=== PATIENT | male | born 1955 | race Caucasian/White ===

== ENCOUNTER → 2016-06-11 | Outpatient (CLI) | payer OTHER ==
[~2016-06-11] MED LIST: ASPI81TA28 PO; FLUT0.0529 NAE; LISI20TA3 PO; MULT-506 PO; OPTIRAY 320 IV PRN
--- NOTE | 2016-06-11 09:30 | DIAGNOSTIC IMAGING REPORT ---
CHEST CTA for AORTIC DISSECTION CT DOSE: 1883.15 mGy.cm HISTORY: Follow-up pulmonary nodules. Hypertension. Evaluate aortic dilatation. X TECHNIQUE: Multiaxial CT images of the chest were performed both before and after the intravenous administration of contrast to evaluate the aorta. Maximal intensity projection images were also obtained. COMPARISON STUDY: Chest CT 01/04/2016. FINDINGS: Mediastinal and bilateral hilar lymph nodes have slightly increased in size. Dominant AP window lymph node measures 2.5 cm, previous measuring 2.0 cm. The ascending thoracic aorta continues to measure up to 4.1 cm in diameter. No evidence for an aortic dissection. No axillary lymphadenopathy. Hepatic steatosis. Normal adrenal glands. The heart is normal in size. No pleural or pericardial effusions. No pneumothorax. A few scattered pulmonary nodules remain stable. Dominant nodule within the right middle lobe on image 179 measures 6 mm. No new pulmonary nodules. No focal lung consolidations. Trace mucoid material within the trachea. IMPRESSION: 1. Increase in size in the mediastinal and bilateral hilar lymphadenopathy. This is nonspecific but could represent a lymphoproliferative disorder. 2. Stable subcentimeter indeterminate pulmonary nodules with the largest in the right middle lobe measuring 6 mm. Please refer to the chart below for recommended follow-up. 3. Hepatic steatosis. 4. Stable mild dilatation of the ascending thoracic aorta measuring 4.1 cm. No evidence for aortic dissection. Please refer to below summary of Fleischner criteria recommendations for follow-up of incidental CT nodules (Ana Schmitt, Guidelines for management of small pulmonary nodules detected on CT scans: A statement from the Fleischner Society, Radiology 237: [phone].) SOLID NODULES Solitary nodule size: <6 mm * low risk patients: no follow-up needed * high risk patients: optional CT at 12 months Solitary nodule size: 6-8 mm * low risk patients: follow-up at 6-12 months, then consider further follow-up at 18-24 months * high risk patients: initial follow-up CT at 6-12 months and then at 18-24 months if no change Solitary nodule size: >8 mm * either low or high risk patients - consider follow-up CT at 3 months, and/or CT-PET, and/or biopsy Multiple nodules size: <6 mm * low risk patients: no routine follow-up * high risk patients: optional CT at 12 months Multiple nodules size: 6-8 mm * low risk patients: follow-up at 3-6 months, then consider further follow-up at 18-24 months * high risk patients: follow-up at 3-6 months, then at 18-24 months if no change Multiple nodules size: >8 mm * low risk patients: follow-up at 3-6 months, then consider further follow-up at 18-24 months * high risk patients: follow-up at 3-6 months, then at 18-24 months if no change Note: newly detected indeterminate nodule in persons 35 years of age or older. * Low risk patients: minimal or absent history of smoking and/or other known risk factors * high risk patients: history of smoking or of other known risk factors (e.g. first degree relative with lung cancer, or exposure to asbestos, radon, uranium) * if a nodule up to 8 mm is partly solid or is ground glass further follow-up is required after 24 months to exclude possible slow growing adenocarcinoma (MIMI) SUBSOLID NODULES Solitary pure ground-glass nodule * nodule size <6 mm - no CT follow-up required * nodule size >=6 mm - follow-up CT at 6-12 months, then every 2 years until 5 years Solitary part-solid nodule * nodule size <6 mm - no CT follow-up required * nodule size >=6 mm - follow-up CT at 3-6 months. If unchanged, and solid component remains <6 mm, then annual follow-up for 5 years Multiple subsolid nodules * nodule size <6 mm - follow-up CT at 3-6 months, consider further follow-up at 2 and 4 years if stable * nodule size >=6 mm - follow-up CT at 3-6 months, subsequent management based on the most suspicious nodule(s) Electronically signed by: Jeffery Mederos M.D. 06/11/2016 9:29 AM Dictated Date/Time: 06/11/2016 9:07 AM
== END | disposition home or self-care (01) ==
LOC: C.CTS 07:21
PROVIDERS: ATTEND Internal Medicine Cardiovascular Disease
DX: I77.819 Aortic ectasia, unspecified site (principal); I10 Essential (primary) hypertension; R91.8 Other nonspecific abnormal finding of lung field; I49.3 Ventricular premature depolarization; R59.0 Localized enlarged lymph nodes; K76.0 Fatty (change of) liver, not elsewhere classified

== ENCOUNTER 2022-05-19 14:29 | Inpatient (IN) ==
--- NOTE | 2022-05-19 15:17 | Emergency Department Note ---
Impression & Plan Acute respiratory failure with hypoxia, Asthma exacerbation, Infection due to human metapneumovirus (hMPV) ED Provider Note NAME: KELTON FULTON AGE: 67 SEX: M : 1955 ARRIVES VIA: Walk-In INFORMANT: Patient, ED PROVIDER(S): Haroldo Wolf MD CHIEF COMPLAINT: SOB, cough MEDICAL DECISION MAKING: Patient presents due to concern for shortness of breath in the setting of tachycardia hypoxemia and low-grade temperature 37 6. Blood work is obtained IV was established. The patient was ordered DuoNebs, steroids, magnesium, IV fluids respiratory viral panel and chest x-ray. Patient was also ordered Rocephin IV 2 g. MRSA swab also obtained. Patient is awake and is 16 with a normal H&H and platelet count. The patient's kidney function is unremarkable. Hyponatremia 134. Magnesium 1.5 the patient was ordered 2 g the patient's asthma component. Bilirubin 1.3. Troponin is not elevated. MRSA negative. The patient's bio fire shows human metapneumovirus. Upon reassessment the patient did feel improved. I did speak the on-call hospitalist service Dr. Vo and the patient was admitted to the medicine service. Critical Care: I have personally spent 42 minutes of critical care time in direct management of this patient. This includes bedside care, interpretation of diagnostic studies, and testing, discussion with consultants, patient, and family members, and other require inpatient management activities. This 42 minutes is in excess of all separately billable procedures. Prior /Outside records reviewed: None Differential diagnosis: Reactive airway disease, pneumonia, pneumothorax, COPD, CHF, infections, cardiac ischemia, pulmonary embolism, musculoskeletal, gastrointestinal, as well as ot her pathologies. Diagnostics, as interpreted by me: ECG: Sinus tachycardia, rate of 127, normal intervals normal axis no ST elevations. Cardiac monitoring: An order was placed for continuous cardiac monitoring. The monitor shows a rate of 122 with tachycardic and regular rhythm. Patient was placed on pulse oximetry Medical decision rules: none Imaging studies: See below HPI: Patient presents from home due to concern for shortness of breath. The patient has had symptoms for the last 48 hours but did have some mild cough may be prior. The patient has felt short of breath in the last 24 to 48 hours and has a known history of asthma. Patient did use his discus as well as an inhaler but without significant improvement in symptoms. Patient denies any nausea vomiting or diarrhea. No chest pains. The patient has had cough but nonproductive. Non-smoker. Patient did have a fever this morning and did try some Tylenol but had an episode of vomiting. The patient is vomited 4 times today. Patient denies any leg swelling or calf pain. No history of heart disease PAST MEDICAL HISTORY: See Below PAST SURGICAL HISTORY: See Below SOCIAL HISTORY: See Below HOME MEDICATIONS: See Below ALLERGIES: See Below VITALS: See Below PHYSICAL EXAMINATION: GENERAL: Mildly ill in appearance, nasal cannula in place. EYE EXAM: Normal conjunctiva. PERRL, no anisocoria and EOM's grossly intact w/o pain. NECK: Supple, no nuchal rigidity, no adenopathy, non-tender. No signs of me ningismus. FROM of the neck with good chin to chest and neck extension. No stridor. LUNGS: Coarse sounds throughout, mild wheezes. Normal chest wall mechanics. HEART: Tachycardic and, no MRG. ABDOMEN: Abdomen soft, non-tender, normo-active bowel sounds, no masses, no rebound or guarding. BACK: No CVA TTP. SKIN: No rashes and no bruising. UPPER EXTREMITIES: Upper extremities are grossly normal. LOWER EXTREMITIES: Grossly normal, no edema. Negative Homans' sign bilaterally. NEURO EXAM: A&O x3, cranial nerves II-XII grossly intact, normal speech, moves all 4 extremities. Past Med/Surg History Medical History Asthma well controlled. BPH with obstruction/lower urinary tract symptoms Chronic sinusitis HTN (hypertension) Hx of basal cell carcinoma upper lip Hx of retained foreign body fully removed misc "splinters" and a piece of metal (in office) Hyperlipidemia Malignant melanoma of ear Prediabetes pt unaware Surgical History H/O wisdom tooth extraction S/P Mohs surgery for basal cell carcinoma Family History Brother Hypertension BPH (benign prostatic hyperplasia) Mother Diabetes Father BPH (benign prostatic hyperplasia) Sister Stroke Denies family history of Ovarian cancer Prostate cancer Myocardial infarction Breast cancer Lung cancer Colorectal cancer Social History Smoking Status: Never smoker Second Hand Exposure: No; Hx Alcohol Use: Yes Alcohol type: beer Hx Substance Use: No Preferred Language: Pashto Communication Ability: Effective Hearing Ability: Normal Armor Reconnaissance Specialist Required: No Beliefs That Will Affect Care: None marital status: Current Living Situation: Spouse current occupational status: retired Other Information That Helps Us Care for You: No Feels Safe at Home: Yes Safety Concerns: Feels Safe At This Time Childhood Exposure to Second-Hand Smoke: Yes caffeine: Yes Dental Care, Regularly: Yes Physical Activity Frequency: Daily Seatbelt Use: always Sunscreen Use: Yes Assistive Devices: Denture - Upper and Glasses Allergies Allergies Allergy/AdvReac Type Severity Reaction Status Date / Time No Known Allergies Allergy Verified 05/19/22 17:34 Home Meds Home Medications Medication Instructions Recorded Confirmed cholecalciferol (vitamin D3) 25 25 mcg PO DAILY 01/17/22 05/19/22 mcg (1,000 unit) capsule (Vitamin D3) Previous Rx's Medication Instructions Recorded metoprolol succinate 25 mg 25 mg PO QAM #90 tabs 08/16/21 tablet,extended release 24 hr fluticasone 250 mcg-salmeterol 50 1 inh inhalation BID #180 ea 10/19/21 mcg/dose blistr powdr for inhalation (Advair Diskus) rosuvastatin 5 mg tablet 5 mg PO HS #90 tabs 10/19/21 tamsulosin 0.4 mg capsule 0.4 mg PO DAILY #90 caps 12/07/21 albuterol sulfate 90 mcg/actuation 2 puff inhalation .COMPLEX PRN 01/08/22 aerosol inhaler (Ventolin HFA) asthmatic bronchitis #54 grams fluocinonide-emollient 0.05 % 1 applic topical BID #30 grams 04/03/22 topical cream (Fluocinonide-E) Results & Data (ED) Vital Signs Vital Signs - 24 hr 05/19/22 14:41 05/19/22 15:20 05/19/22 16:23 Temperature 37.6 C H Temperature Source Temporal Artery Scan Pulse Rate 116 H 128 H Pulse Rate [Right Apical] 110 H Pulse Rate from SpO2 Sensor Respiratory Rate 20 20 Respiratory Effort / Characteristics Non-Labored Spontaneous Spontaneous Respiratory Depth Normal Blood Pressure 199/104 H Blood Pressure Mean 135 Pulse Oximetry 89 L 96 Oxygen Delivery Method Room Air Nasal Cannula Oxygen Flow Rate 4 Sepsis New/Unexplained Change in Mental Status N/A Sepsis Action Taken by Nursing No Action Required 05/19/22 15:19 05/19/22 15:30 05/19/22 17:13 Temperature Temperature Source Pulse Rate 128 H 126 H Pulse Rate [Right Apical] Pulse Rate from SpO2 Sensor 128 H 126 H 123 H Respiratory Rate 23 24 Respiratory Effort / Characteristics Respiratory Depth Blood Pressure 172/102 H 151/104 H 135/60 Blood Pressure Mean 125 119 85 Pulse Oximetry 91 92 94 Oxygen Delivery Method Oxygen Flow Rate Sepsis New/Unexplained Change in Mental Status Sepsis Action Taken by Nursing 05/19/22 17:30 05/19/22 18:00 Temperature Temperature Source Pulse Rate 123 H 119 H Pulse Rate [Right Apical] Pulse Rate from SpO2 Sensor 123 H 119 H Respiratory Rate Respiratory Effort / Characteristics Respiratory Depth Blood Pressure 94/54 L 120/58 L Blood Pressure Mean 67 78 Pulse Oximetry 94 93 Oxygen Delivery Method Oxygen Flow Rate Sepsis New/Unexplained Change in Mental Status Sepsis Action Taken by Detention Medications Current Medication List: was personally reviewed by va Laboratory Data Attestation: I reviewed the patient's lab results. 05/19/22 15:19 05/19/22 15:19 Lab Results 05/19/22 05/19/22 05/19/22 Range/Units 14:45 15:19 15:19 WBC 16.82 H (4.8-10.8) K/ul RBC 5.41 (4.70-6.10) M/uL Hgb 15.8 (14.0-18.0) g/dl Hct 46.7 (42.0-52.0) % MCV 86.3 (80.0-100.0) fL MCH 29.2 (25.0-34.0) pg MCHC 33.8 (32.0-36.0) g/dL RDW Std Deviation 45.8 (36.4-46.3) fL RDW Coeff of Traci 14.5 (11.5-14.5) % Plt Count 164 (130-400) K/uL MPV 11.4 (9.4-12.4) fL Immature Gran % (Auto) 0.5 % Neut % (Auto) 91.5 % Lymph % (Auto) 2.3 % [place] % (Auto) 5.3 % Eos % (Auto) 0.1 % Baso % (Auto) 0.3 % Neut # (Auto) 15.40 H (1.40-6.50) K/uL Lymph # (Auto) 0.38 L (1.2-3.4) K/uL [place] # (Auto) 0.89 H (0.11-0.59) K/uL Eos # (Auto) 0.02 (0-0.50) K/uL Baso # (Auto) 0.05 (0-0.2) K/uL Immature Gran # (Auto) 0.08 (0.01-0.20) K/uL PT 11.4 (9.0-12.0) Seconds INR 1.1 (0.9-1.1) APTT 29.7 (21.0-31.0) Seconds PTT Ratio 1.1 Sodium (136-145) mmol/L Potassium (3.5-5.1) mmol/L Chloride (98-107) mmol/L Carbon Dioxide (21-32) mmol/L Anion Gap (3-11) BUN (6-23) mg/dl Creatinine (0.6-1.4) mg/dl Est Cr Clr Drug Dosing ml/min Est GFR ( Amer) ml/min Est GFR (Non-Af Amer) ml/min BUN/Creatinine Ratio (10-20) Glucose (70-99(Fasting)) mg/dl Lactate (0.4-2.0) mmol/L Calcium (8.5-10.1) mg/dl Magnesium (1.7-2.4) mg/dl Total Bilirubin (0.2-1.0) mg/dl AST (13-39) U/L ALT (7-52) U/L Alkaline Phosphatase (34-104) U/L Troponin I High Sens (0-20) pg/ml Total Protein (6.0-8.3) gm/dl Albumin (3.4-5.0) gm/dl Globulin (2.5-4.0) gm/dl Albumin/Globulin Ratio (0.9-2) Procalcitonin (0-0.5) ng/ml Adenovirus (PCR) Not Detected (NotDetected) B. pertussis DNA (PCR) Not Detected (NotDetected) B.parapertussis DNA PCR Not Detected (NotDetected) C. pneumoniae DNA (PCR) Not Detected (NotDetected) Coronavirus OC43 (PCR) Not Detected (NotDetected) Coronavirus HKU1 (PCR) Not Detected (NotDetected) Coronavirus 229E (PCR) Not Detected (NotDetected) SARS-CoV-2 (PCR) Not Detected (NotDetected) Coronavirus NL63 (PCR) Not Detected (NotDetected) Human Metapneumovir PCR DETECTED A* (NotDetected) Influenza Type A (PCR) Not Detected (NotDetected) Influenza Type B (PCR) Not Detected (NotDetected) M. pneumoniae (PCR) Not Detected (NotDetected) Parainfluenza 1 (PCR) Not Detected (NotDetected) Parainfluenza 2 (PCR) Not Detected (NotDetected) Parainfluenza 3 (PCR) Not Detected (NotDetected) Parainfluenza 4 (PCR) Not Detected (NotDetected) RSV (PCR) Not Detected (NotDetected) Entero/Rhino (PCR) Not Detected (NotDetected) 05/19/22 05/19/22 05/19/22 Range/Units 15:19 15:19 16:02 WBC (4.8-10.8) K/ul RBC (4.70-6.10) M/uL Hgb (14.0-18.0) g/dl Hct (42.0-52.0) % MCV (80.0-100.0) fL MCH (25.0-34.0) pg MCHC (32.0-36.0) g/dL RDW Std Deviation (36.4-46.3) fL RDW Coeff of Traci (11.5-14.5) % Plt Count (130-400) K/uL MPV (9.4-12.4) fL Immature Gran % (Auto) % Neut % (Auto) % Lymph % (Auto) % [place]ock[place] % (Auto) % Eos % (Auto) % Baso % (Auto) % Neut # (Auto) (1.40-6.50) K/uL Lymph # (Auto) (1.2-3.4) K/uL [place] # (Auto) (0.11-0.59) K/uL Eos # (Auto) (0-0.50) K/uL Baso # (Auto) (0-0.2) K/uL Immature Gran # (Auto) (0.01-0.20) K/uL PT (9.0-12.0) Seconds INR (0.9-1.1) APTT (21.0-31.0) Seconds PTT Ratio Sodium 134 L (136-145) mmol/L Potassium 4.0 (3.5-5.1) mmol/L Chloride 100 (98-107) mmol/L Carbon Dioxide 27 (21-32) mmol/L Anion Gap 7 (3-11) BUN 13 (6-23) mg/dl Creatinine 1.04 (0.6-1.4) mg/dl Est Cr Clr Drug Dosing 99.2 ml/min Est GFR ( Amer) 85.1 ml/min Est GFR (Non-Af Amer) 73.4 ml/min BUN/Creatinine Ratio 12.5 (10-20) Glucose 151 H (70-99(Fasting)) mg/dl Lactate 1.7 (0.4-2.0) mmol/L Calcium 9.2 (8.5-10.1) mg/dl Magnesium 1.5 L (1.7-2.4) mg/dl Total Bilirubin 1.3 H (0.2-1.0) mg/dl AST 35 (13-39) U/L ALT 44 (7-52) U/L Alkaline Phosphatase 83 (34-104) U/L Troponin I High Sens 12.0 (0-20) pg/ml Total Protein 8.0 (6.0-8.3) gm/dl Albumin 4.6 (3.4-5.0) gm/dl Globulin 3.4 (2.5-4.0) gm/dl Albumin/Globulin Ratio 1.4 (0.9-2) Procalcitonin 0.38 (0-0.5) ng/ml Adenovirus (PCR) (NotDetected) B. pertussis DNA (PCR) (NotDetected) B.parapertussis DNA PCR (NotDetected) C. pneumoniae DNA (PCR) (NotDetected) Coronavirus OC43 (PCR) (NotDetected) Coronavirus HKU1 (PCR) (NotDetected) Coronavirus 229E (PCR) (NotDetected) SARS-CoV-2 (PCR) (NotDetected) Coronavirus NL63 (PCR) (NotDetected) Human Metapneumovir PCR (NotDetected) Influenza Type A (PCR) (NotDetected) Influenza Type B (PCR) (NotDetected) M. pneumoniae (PCR) (NotDetected) Parainfluenza 1 (PCR) (NotDetected) Parainfluenza 2 (PCR) (NotDetected) Parainfluenza 3 (PCR) (NotDetected) Parainfluenza 4 (PCR) (NotDetected) RSV (PCR) (NotDetected) Entero/Rhino (PCR) (NotDetected) Administered Medications Albuterol (Albut/Ipratrop 3mg/0.5mg Neb 3 Ml Vial) 3 ml NEB Q4R FREDDY; Protocol Stop: 06/18/22 20:21 Last Admin: 05/19/22 20:55 Dose: Not Given Documented By: GINA Budesonide (Budesonide 0.5 Mg/2 Ml Vial (Pulmicort)) 0.5 mg NEB BIDR FREDDY Stop: 06/18/22 20:21 Last Admin: 05/19/22 20:55 Dose: 0.5 mg Documented By: GINA Formoterol Fumarate (Formoterol 20 Mcg/2 Ml Vial) 20 mcg NEB BID FREDDY Stop: 06/18/22 20:59 Last Admin: 05/19/22 20:55 Dose: 20 mcg Documented By: GINA Discontinued Medications Albuterol (Albut/Ipratrop 3mg/0.5mg Neb 3 Ml Vial) 12 ml INH ONE STA Stop: 05/19/22 15:34 Last Admin: 05/19/22 16:22 Dose: 12 ml Documented By: [facility] Sodium Chloride (Nss 1000ml) 1,000 mls @ 999 mls/hr IV .Q1H1M FREDDY Stop: 05/19/22 16:45 Last Infusion: 05/19/22 17:11 Dose: 0 mls/hr Documented By: Admin: 05/19/22 16:06 Dose: 999 mls/hr Documented By: LEONELA Magnesium Sulfate/Dextrose (Magnesium Sulfate / D5w) 1 gm in 100 mls @ 100 mls/hr IV Q1H FREDDY Stop: 05/19/22 17:44 Last Infusion: 05/19/22 19:01 Dose: 0 mls/hr Documented By: Admin: 05/19/22 18:21 Dose: 100 mls/hr Documented By: Infusion: 05/19/22 18:05 Dose: 100 mls/hr Documented By: Admin: 05/19/22 17:05 Dose: 100 mls/hr Documented By: JCK Ceftriaxone Sodium (Rocephin) 2,000 mg in 70 mls @ 140 mls/hr IV NOW STA Stop: 05/19/22 16:03 Last Infusion: 05/19/22 17:11 Dose: 0 mls/hr Documented By: Admin: 05/19/22 16:06 Dose: 140 mls/hr Documented By: LEONELA Acetaminophen (Ofirmev) 1,000 mg in 100 mls @ 400 mls/hr IV NOW STA Stop: 05/19/22 16:12 Last Infusion: 05/19/22 17:11 Dose: 0 mls/hr Documented By: Admin: 05/19/22 16:34 Dose: 400 mls/hr Documented By: LEONELA Azithromycin 500 mg/ Dextrose 255 mls @ 127.5 mls/hr IV NOW STA Stop: 05/19/22 19:59 Last Admin: 05/19/22 19:01 Dose: 127.5 mls/hr Documented By: Magnesium Sulfate/Dextrose (Magnesium Sulfate / D5w) 1 gm in 100 mls @ 50 mls/hr IV ONE ONE Stop: 05/19/22 20:00 Last Admin: 05/19/22 18:15 Dose: Not Given Documented By: ANTONELLA Methylprednisolone (Methylprednisolone 125 Mg/2 Ml Vial) 125 mg IV NOW STA Stop: 05/19/22 15:34 Last Admin: 05/19/22 16:05 Dose: 125 mg Documented By: JCK Imaging Data Radiologist's Impression: Chest X-Ray 05/19/22 15:34 XR chest 1V portable CLINICAL HISTORY: Dyspnea TECHNIQUE: Single frontal radiograph of the chest was obtained. Comparison: Comparison is made to CT chest 06/11/2016 FINDINGS: Exam is limited by underpenetration. Cardiomegaly is noted. The lungs are clear. A small left pleural effusion cannot be entirely excluded. IMPRESSION: Possible small left pleural effusion. Stable cardiomegaly. ACT 112: Negative or not required by law. Electronically signed by: Jassi Danielle M.D. 05/19/2022 4:13 PM Discharge Plan Visit Data Chief Complaint: Flu Like Symptoms Stated Complaint: FEVER, SINUS CONGESTION, SHORTNESS OF BREATH ED Provider: Haroldo Wolf Discharge Problem: Acute respiratory failure with hypoxia, Asthma exacerbation, Infection due to human metapneumovirus (hMPV) Patient Disposition: Admitted As Inpatient Discharge Instructions Interventions: ED Discharge Assessment Last Done: 05/19/22 20:23
[2022-05-19] MEDS ORDERED: ALBUT/IPRATROP 3MG/0.5MG NEB 3 ML VIAL INH STA (15:33)
[2022-05-19] MEDS ORDERED: methylPREDNISolone 125 MG/2 ML VIAL IV STA (15:33)
[2022-05-19] MEDS ORDERED: cefTRIAXone SODIUM 2,000 MG/70 ML BAG IV STA (15:34)
[2022-05-19] MEDS ORDERED: SODIUM CHLORIDE 0.9% 1000ML 1,000 ML IV SCH (15:45)
[2022-05-19 15:58] LABS: Hematocrit (blood only) 46.7 % (42.0-52.0); Hemoglobin 15.8 g/dl (14.0-18.0); Mean Corpuscular Hemoglobin 29.2 pg (25.0-34.0); Mean Corpuscular Hgb Conc 33.8 g/dL (32.0-36.0); Mean Corpuscular Volume 86.3 fL (80.0-100.0); Mean Platelet Volume 11.4 fL (9.4-12.4); Platelet Count 164 K/uL (130-400); RDW Coefficient of Variation 14.5 % (11.5-14.5); RDW Standard Deviation 45.8 fL (36.4-46.3); Red Blood Count 5.41 M/uL (4.70-6.10); White Blood Count 16.82 K/ul (4.8-10.8)
[2022-05-19] MEDS ORDERED: ACETAMINOPHEN 1,000 MG/100 ML VIAL IV STA (15:58)
[2022-05-19 16:13] LABS: Albumin Globulin Ratio 1.4 (0.9-2); Albumin Level 4.6 gm/dl (3.4-5.0); BUN Creatinine Ratio 12.5 (10-20); Bilirubin,Total 1.3 mg/dl (0.2-1.0); Calcium 9.2 mg/dl (8.5-10.1); Creatinine Clr Calc Pharmacy 99.2 ml/min; Est GFR (African American) 85.1 ml/min; Est GFR (Non-African American) 73.4 ml/min; Globulin 3.4 gm/dl (2.5-4.0); Magnesium 1.5 mg/dl (1.7-2.4)
--- NOTE | 2022-05-19 16:14 | XRay Report ---
XR chest 1V portable CLINICAL HISTORY: Dyspnea TECHNIQUE: Single frontal radiograph of the chest was obtained. Comparison: Comparison is made to CT chest 06/11/2016 FINDINGS: Exam is limited by underpenetration. Cardiomegaly is noted. The lungs are clear. A small left pleural effusion cannot be entirely excluded. IMPRESSION: Possible small left pleural effusion. Stable cardiomegaly. ACT 112: Negative or not required by law. Electronically signed by: Jassi Danielle M.D. 05/19/2022 4:13 PM
[2022-05-19 16:19] LABS: Basophils # (auto) 0.05 K/uL (0-0.2); Basophils % (auto) 0.3 %; Eosinophils # (auto) 0.02 K/uL (0-0.50); Eosinophils % (auto) 0.1 %; Immature Granulocytes # (auto) 0.08 K/uL (0.01-0.20); Immature Granulocytes % (auto) 0.5 %; Lymphocytes # (auto) 0.38 K/uL (1.2-3.4); Lymphocytes % (auto) 2.3 %; Monocytes # (auto) 0.89 K/uL (0.11-0.59); Monocytes % (auto) 5.3 %; Neutrophils % (auto) 91.5 %
[2022-05-19 16:29] LABS: INR 1.1 (0.9-1.1); Partial Thromboplastin Ratio 1.1; Partial Thromboplastin Time 29.7 Seconds (21.0-31.0); Prothrombin Time 11.4 Seconds (9.0-12.0)
[2022-05-19] MEDS: MAGNESIUM SULFATE / D5W 1 GM/100 ML BAG IV SCH ×2 (17:05→18:21)
[2022-05-19 17:07] LABS: Adenovirus PCR Not Detected (NotDetected); Bordetella parapertussis PCR Not Detected (NotDetected); Bordetella pertussis PCR Not Detected (NotDetected); Chlamydia pneumoniae PCR Not Detected (NotDetected); Coronavirus 229E PCR Not Detected (NotDetected); Coronavirus CoV-2 (COVID19)PCR Not Detected (NotDetected); Coronavirus HKU1 PCR Not Detected (NotDetected); Coronavirus NL63 PCR Not Detected (NotDetected); Coronavirus OC43PCR Not Detected (NotDetected); Influenza A PCR Not Detected (NotDetected); Influenza B PCR Not Detected (NotDetected); Mycoplasma pneumoniae PCR Not Detected (NotDetected); Parainfluenza Virus 1 PCR Not Detected (NotDetected); Parainfluenza Virus 2 PCR Not Detected (NotDetected); Parainfluenza Virus 3 PCR Not Detected (NotDetected); Parainfluenza Virus 4 PCR Not Detected (NotDetected); Respiratory Syncytial VirusPCR Not Detected (NotDetected); Rhinovirus/Enterovirus PCR Not Detected (NotDetected)
[2022-05-19 17:10] LABS: Human Metapneumovirus PCR DETECTED (NotDetected)
--- NOTE | 2022-05-19 17:49 | History & Physical Report ---
Date of Service May 19, 2022 Assessment & Plan (1) Acute respiratory failure with hypoxia: Plan: Secondary to asthma exacerbation. Aim O2 sats > 94%. (2) Asthma exacerbation: Plan: Duonebs every 4 hourly Switch Advair to Perforomist and budesonide nebulizers twice daily Solu-medrol 125 mg IV given in the ER. Continue 40 mg IV twice daily Suspect most likely secondary to metapneumovirus however will also treat for bacterial pneumonia given chest x-ray changes and elevated white blood count Repeat magnesium level in a.m. after 2 g IV replacement given today. (3) Bacterial pneumonia: Plan: Blunting of left base costophrenic angle on chest x-ray representing possible pneumonia. Given elevated white blood count will treat with Unasyn and azithromycin although most likely symptoms secondary to metapneumovirus. Recommend repeat two-view chest x-ray in 4 weeks to ensure possible left pleural effusion has resolved (4) Hypertension: Plan: Continue metoprolol succinate 25 mg p.o. daily (5) Hyperlipidemia: Plan: Continue rosuvastatin 5 mg p.o. at bedtime (6) BPH (benign prostatic hyperplasia): Plan: Continue tamsulosin 0.4 mg p.o. daily Plan VTE prophylaxis - Lovenox 40 mg subcu twice daily Diet - regular Disposition - admit to [facility] telemetry Admission and Anticipated Discharge Date Admission Date: May 19, 2022 History of Present Illness Chief Complaint: Shortness of breath Primary Care Provider: Alex Trevino DO Murray Murcia is a 67 year old male who presents to the ER with vomiting, cough, nasal congestion, shortness of breath and wheezing. He reports being on day 4 of his illness. Initially started with nasal congestion and sinus pain. Last night he became much worse with shortness of breath, coughing up brown/yellow sputum and vomiting this morning. He has been taking his albuterol nebulizer and inhaler at home 4 times a day. He has not yet been on prednisone. He is taking his Advair as prescribed which she takes only around. He reports no asthma exacerbation for years requiring prednisone. He denies any chest pain, orthopnea, PND, palpitations, claudication. He denies any abdominal pain, diarrhea, constipation or urinary symptoms. Currently feeling febrile. In the ER he was given an hour-long DuoNeb, Solu-Medrol 125 mg IV and 1 L normal saline bolus. He feels significantly improved after these treatments however he is still requiring 6 L/min oxygen at rest. He is not on oxygen at baseline. He was referred to medicine for admission ongoing management of acute hypoxic respiratory failure. Allergies Allergy/AdvReac Type Severity Reaction Status Date / Time No Known Allergies Allergy Verified 05/19/22 17:34 Home Medications Medication Instructions Recorded Confirmed Type metoprolol succinate 25 mg 25 mg PO QAM #90 tabs 08/16/21 05/19/22 Rx tablet,extended release 24 hr fluticasone 250 mcg-salmeterol 50 1 inh inhalation BID #180 ea 10/19/21 05/19/22 Rx mcg/dose blistr powdr for inhalation (Advair Diskus) rosuvastatin 5 mg tablet 5 mg PO HS #90 tabs 10/19/21 05/19/22 Rx tamsulosin 0.4 mg capsule 0.4 mg PO DAILY #90 caps 12/07/21 05/19/22 Rx albuterol sulfate 90 mcg/actuation 2 puff inhalation .COMPLEX PRN 01/08/22 05/19/22 Rx aerosol inhaler (Ventolin HFA) asthmatic bronchitis #54 grams cholecalciferol (vitamin D3) 25 25 mcg PO DAILY 01/17/22 05/19/22 History mcg (1,000 unit) capsule (Vitamin D3) fluocinonide-emollient 0.05 % 1 applic topical BID #30 grams 04/03/22 05/19/22 Rx topical cream (Fluocinonide-E) Past Med/Surg History Medical History Asthma well controlled. BPH with obstruction/lower urinary tract symptoms Chronic sinusitis HTN (hypertension) Hx of basal cell carcinoma upper lip Hx of retained foreign body fully removed misc "splinters" and a piece of metal (in office) Hyperlipidemia Malignant melanoma of ear Prediabetes pt unaware Surgical History H/O wisdom tooth extraction S/P Mohs surgery for basal cell carcinoma Family History Brother Hypertension BPH (benign prostatic hyperplasia) Mother Diabetes Father BPH (benign prostatic hyperplasia) Sister Stroke Denies family history of Ovarian cancer Prostate cancer Myocardial infarction Breast cancer Lung cancer Colorectal cancer Social History Smoking Status: Never smoker Second Hand Exposure: No; Hx Alcohol Use: No Hx Substance Use: No Preferred Language: Mauritanian Communication Ability: Effective Hearing Ability: Normal Plastic Surgery Manager Required: No Beliefs That Will Affect Care: None marital status: Current Living Situation: Spouse current occupational status: retired Feels Safe at Home: Yes Childhood Exposure to Second-Hand Smoke: Yes caffeine: Yes Dental Care, Regularly: Yes Physical Activity Frequency: Daily Seatbelt Use: always Sunscreen Use: Yes Assistive Devices: Denture - Upper Review of Systems Review of Systems: All systems reviewed & are unremarkable except as noted in HPI & below Physical Exam Constitutional: WD/WN, vitals as above Eyes: + anicteric sclerae; normal pupil size ENMT: external ear and nose normal, oropharynx normal Neck: trachea midline, no thyromegaly Respiratory: + respiratory distress, + labored breathing, + uses accessory muscles and + audible wheezes; + abnormal respiratory effort Auscultation: + wheezes (expiratory throughout); breath sounds present, no diminished lung sounds, no crackles, no rales and no rhonchi Cardiovascular: Rate/Rhythm: regular rhythm and + tachycardic Heart Sounds: no murmur Extremities: normal capillary refill; no calf tenderness and no pedal edema Gastrointestinal (Abdomen): normal bowel sounds, soft, nontender, no hepatosplenomegaly Musculoskeletal: no cyanosis or clubbing, extremities motor strength 5/5 Skin: no rashes, warm and dry Neurologic: moves all extremities and awake; not confused Psychiatric: A+Ox3, euthymic affect Results & Data Results & Data ([facility]) Vital Signs (Past 12 Hours) Vital Signs Temp Pulse Pulse Resp BP Pulse Ox O2 Del Method 05/19/22 16:23 110 H 20 96 Nasal Cannula 05/19/22 15:20 128 H 05/19/22 14:41 37.6 C H 116 H 20 199/104 H 89 L Room Air O2 Flow Rate 05/19/22 16:23 4 05/19/22 15:20 05/19/22 14:41 Laboratory Results Abnormal lab results 05/19/22 05/19/22 05/19/22 Range/Units 14:45 15:19 15:19 WBC 16.82 H (4.8-10.8) K/ul Neut # (Auto) 15.40 H (1.40-6.50) K/uL Lymph # (Auto) 0.38 L (1.2-3.4) K/uL [place] # (Auto) 0.89 H (0.11-0.59) K/uL Sodium 134 L (136-145) mmol/L Glucose 151 H (70-99(Fasting)) mg/dl Magnesium 1.5 L (1.7-2.4) mg/dl Total Bilirubin 1.3 H (0.2-1.0) mg/dl Human Metapneumovir PCR DETECTED A* (NotDetected) Diagnostic Findings XR chest 1V portable CLINICAL HISTORY: Dyspnea TECHNIQUE: Single frontal radiograph of the chest was obtained. Comparison: Comparison is made to CT chest 06/11/2016 FINDINGS: Exam is limited by underpenetration. Cardiomegaly is noted. The lungs are clear. A small left pleural effusion cannot be entirely excluded. IMPRESSION: Possible small left pleural effusion. Stable cardiomegaly. Medications Administered ER medications given: Normal saline 1 L bolus Solu-Medrol 125 mg IV Magnesium sulfate 1 g IV x2 Ceftriaxone 2 g IV DuoNeb 12 mL nebulizer Acetaminophen 1 g IV ECG Rate (beats per minute): 127 Rhythm: sinus tachycardia Findings: no acute ischemic change Comparison ECG Date: from (May 24, 2021) Change: the following changes noted (Increased rate but otherwise no significant changes) Code Status & VTE Plan Code Status Full VTE Prophylaxis Plan VTE Prophylaxis will be ordered: Yes PG Care Time/CCT Total # of Minutes Spent Total Time Spent with Patient: Total time spent is greater than 50% in coordination of care (as documented) at patient's floor/unit and/or counseling patient: Coding Level of Care Code 91755 INT INP/OBS CARE 3/75MIN Diagnoses Acute respiratory failure with hypoxia J96.01 Asthma exacerbation J45.901 Bacterial pneumonia J15.9 Hypertension I10 Hyperlipidemia E78.5 BPH (benign prostatic hyperplasia) N40.0
[2022-05-19] MEDS ORDERED: AZITHROMYCIN 500 MG in DEXTROSE 5% 250 ML IV STA (18:00)
[2022-05-19] MEDS ORDERED: MAGNESIUM SULFATE / D5W 1 GM/100 ML BAG IV ONE (18:01)
[2022-05-19] MEDS ORDERED: ONDANSETRON INJ 2 MG/ML 2 ML VIAL IV PRN (20:22)
[2022-05-19] MEDS ORDERED: ACETAMINOPHEN 325 MG TAB PO PRN (20:22)
[2022-05-19] MEDS: BUDESONIDE 0.5 MG/2 ML VIAL (PULMICORT) NEB SCH (20:55)
[2022-05-19] MEDS: ALBUT/IPRATROP 3MG/0.5MG NEB 3 ML VIAL NEB SCH ×2 (20:55→22:56)
[2022-05-19] MEDS ORDERED: FORMOTEROL 20 MCG/2 ML VIAL NEB SCH (21:00)
[2022-05-19] MEDS: ENOXAPARIN INJ 40 MG/0.4 ML SYR SQ SCH (21:23)
[2022-05-19] MEDS: AMPICILLIN/SULBACTAM SOD 3,000 MG in 0.9 % SODIUM CHLORIDE 100 ML IV SCH (21:24)
[2022-05-20] MEDS: ALBUT/IPRATROP 3MG/0.5MG NEB 3 ML VIAL NEB SCH ×6 (03:10→22:44)
[2022-05-20] MEDS: AMPICILLIN/SULBACTAM SOD 3,000 MG in 0.9 % SODIUM CHLORIDE 100 ML IV SCH ×4 (03:46→20:42)
[2022-05-20 05:56] LABS: Hematocrit (blood only) 43.6 % (42.0-52.0); Hemoglobin 14.8 g/dl (14.0-18.0); Mean Corpuscular Hemoglobin 29.5 pg (25.0-34.0); Mean Corpuscular Hgb Conc 33.9 g/dL (32.0-36.0); Mean Platelet Volume 11.3 fL (9.4-12.4); Platelet Count 182 K/uL (130-400); RDW Coefficient of Variation 14.7 % (11.5-14.5); RDW Standard Deviation 47.2 fL (36.4-46.3); Red Blood Count 5.01 M/uL (4.70-6.10); White Blood Count 21.47 K/ul (4.8-10.8)
[2022-05-20 06:13] LABS: BUN Creatinine Ratio 17.1 (10-20); Calcium 8.7 mg/dl (8.5-10.1); Creatinine Clr Calc Pharmacy 92.4 ml/min; Est GFR (African American) 78.7 ml/min; Est GFR (Non-African American) 67.9 ml/min
[2022-05-20 06:21] LABS: Basophils # (auto) 0.04 K/uL (0-0.2); Basophils % (auto) 0.2 %; Echinocytes 2+; Eosinophils # (auto) 0.03 K/uL (0-0.50); Eosinophils % (auto) 0.1 %; Immature Granulocytes # (auto) 0.23 K/uL (0.01-0.20); Immature Granulocytes % (auto) 1.1 %; Lymphocytes % (auto) 2.8 %; Monocytes # (auto) 0.73 K/uL (0.11-0.59); Monocytes % (auto) 3.4 %; Neutrophils # (auto) 19.84 K/uL (1.40-6.50); Neutrophils % (auto) 92.4 %
[2022-05-20] MEDS: BUDESONIDE 0.5 MG/2 ML VIAL (PULMICORT) NEB SCH ×2 (07:13→19:16)
[2022-05-20] MEDS: FORMOTEROL 20 MCG/2 ML VIAL NEB SCH ×2 (07:13→19:16)
[2022-05-20] MEDS: AZITHROMYCIN 250 MG TAB PO SCH (07:52)
[2022-05-20] MEDS: ENOXAPARIN INJ 40 MG/0.4 ML SYR SQ SCH ×2 (07:53→20:42)
--- NOTE | 2022-05-20 10:32 | Electrocardiogram Report ---
Test Reason : Blood Pressure : / mmHG Vent. Rate : 127 BPM Atrial Rate : 127 BPM P-R Int : 158 ms QRS Dur : 084 ms QT Int : 304 ms P-R-T Axes : 015 -13 031 degrees QTc Int : 441 ms Sinus tachycardia Otherwise normal ECG When compared with ECG of 24-MAY-2021 09:23, Vent. rate has increased BY 52 BPM Confirmed by Arvin Rossi ([id number]) on 05/20/2022 10:31:54 AM Referred By: REFERRED SELF Confirmed By:Arvin Rossi
--- NOTE | 2022-05-20 13:34 | Hospitalist Progress Note ---
Date of Service May 20, 2022 Assessment & Plan (1) Infection due to human metapneumovirus (hMPV): Plan: Likely the cause of his SOB and Asthma exacerbation Although patient also gave a history of recently raking up mouldy leaves from his yard Will also obtain sputum gram stain and culture continue symptomatic mgt (2) Acute respiratory failure with hypoxia: Plan: Secondary to asthma exacerbation and metapneumovirus. Aim O2 sats > 94%. (3) Asthma exacerbation: Plan: Exacerbation, precipitated by metapneumovirus or possibly mould given a recent exposure Duonebs every 4 hourly Switch Advair to Perforomist and budesonide nebulizers twice daily Solu-medrol 125 mg IV given in the ER. Continue 40 mg IV twice daily Suspect most likely secondary to metapneumovirus however will also treat for bacterial pneumonia given chest x-ray changes and elevated white blood count Repeat magnesium level in a.m. after 2 g IV replacement given today. Sputum gram stain pending (4) Bacterial pneumonia: Plan: Blunting of left base costophrenic angle on chest x-ray may represent possible pneumonia. Given elevated white blood count will treat with Unasyn and azithromycin although most likely symptoms secondary to metapneumovirus. (5) Hypertension: Plan: Continue metoprolol succinate 25 mg p.o. daily (6) Hyperlipidemia: Plan: Continue rosuvastatin 5 mg p.o. at bedtime (7) BPH (benign prostatic hyperplasia): Plan: Continue tamsulosin 0.4 mg p.o. daily Plan VTE prophylaxis - Lovenox 40 mg subcu twice daily Diet - regular Disposition - continue hospitalization Admission and Anticipated Discharge Date Admission Date: May 19, 2022 Subjective patient seen and examined, feels over all better Review of Systems Review of Systems: All systems reviewed are negative, apart from the ones contained in the history. Physical Exam Physical Exam: The patient is awake, alert and oriented 3, well developed and well nourished, normocephalic and atraumatic, lying in bed and in no acute distress. HEENT--PERRL, EOMI, mucous membranes and oropharynx mildly dry Neck--supple. No JVD. No bruits. Thyroid normal, trachea midline, no adenopathy. Heart--normal S1 and S2. No murmurs, rubs or gallops. Lungs--clear bilaterally, no respiratory distress, no accessory muscle use. Abdomen--normal bowel sounds and soft. Mild epigastric and left sided abdominal pain Extremities--no cyanosis or clubbing. No edema. Dermatologic--normal skin turgor, normal color, no abnormal lymph nodes, no rash. Neurologic--cranial nerves II through XII grossly intact. Rheumatologic--normal range of motion. Psychiatric--normal affect. Results & Data Results & Data ([facility]) Vital Signs (Past 12 Hours) Vital Signs Temp Pulse Pulse Resp BP Pulse Ox O2 Del Method 05/20/22 11:32 98.2 F 90 20 168/89 H 94 Room Air 05/20/22 11:17 90 18 94 Room Air 05/20/22 08:04 Room Air 05/20/22 07:28 98.8 F 93 H 20 172/68 H 96 Room Air 05/20/22 07:14 96 H 20 95 Room Air 05/20/22 07:07 99 H 05/20/22 04:00 98.6 F 107 H 18 160/72 H 95 Room Air 05/20/22 04:28 105 H 05/20/22 03:10 100 H 18 92 Room Air PG Care Time/CCT Total # of Minutes Spent Total Time Spent with Patient: Total time spent is greater than 50% in coordination of care (as documented) at patient's floor/unit and/or counseling patient: Coding Level of Care Code 19186 SUB INP/OBS CARE 2/35MIN Diagnoses Infection due to human metapneumovirus (hMPV) B34.8 Acute respiratory failure with hypoxia J96.01 Asthma exacerbation J45.41 Asthma persistence: persistent Asthma severity: moderate Bacterial pneumonia J15.9 Hypertension I10 Hyperlipidemia E78.5 BPH (benign prostatic hyperplasia) N40.0 Time Spent (min) 35 (3) Asthma exacerbation Asthma persistence: persistent Asthma severity: moderate Qualified Code(s): J45.41 - Moderate persistent asthma with (acute) exacerbation
[2022-05-20] MEDS: methylPREDNISolone 40 MG in SYRINGE 0 ML IV SCH (20:41)
[2022-05-21] MEDS: ALBUT/IPRATROP 3MG/0.5MG NEB 3 ML VIAL NEB SCH ×3 (03:06→10:12)
[2022-05-21] MEDS: AMPICILLIN/SULBACTAM SOD 3,000 MG in 0.9 % SODIUM CHLORIDE 100 ML IV SCH ×2 (03:27→09:25)
[2022-05-21] MEDS: FORMOTEROL 20 MCG/2 ML VIAL NEB SCH (06:57)
[2022-05-21] MEDS: BUDESONIDE 0.5 MG/2 ML VIAL (PULMICORT) NEB SCH (06:57)
[2022-05-21 07:34] LABS: Hematocrit (blood only) 44.3 % (42.0-52.0); Hemoglobin 14.9 g/dl (14.0-18.0); Mean Corpuscular Hemoglobin 29.3 pg (25.0-34.0); Mean Corpuscular Hgb Conc 33.6 g/dL (32.0-36.0); Mean Corpuscular Volume 87.2 fL (80.0-100.0); Mean Platelet Volume 11.3 fL (9.4-12.4); Platelet Count 188 K/uL (130-400); RDW Coefficient of Variation 14.6 % (11.5-14.5); Red Blood Count 5.08 M/uL (4.70-6.10); White Blood Count 21.13 K/ul (4.8-10.8)
[2022-05-21 08:06] LABS: BUN Creatinine Ratio 23.8 (10-20); Calcium 8.7 mg/dl (8.5-10.1); Creatinine Clr Calc Pharmacy 101.6 ml/min; Est GFR (African American) 88.2 ml/min; Est GFR (Non-African American) 76.1 ml/min; Potassium 5.1 mmol/L (3.5-5.1)
[2022-05-21] MEDS ORDERED: amLODIPine BESYLATE 5 MG TAB PO SCH (09:00)
[2022-05-21] MEDS: methylPREDNISolone 40 MG in SYRINGE 0 ML IV SCH (09:24)
[2022-05-21] MEDS: AZITHROMYCIN 250 MG TAB PO SCH (09:24)
[2022-05-21] MEDS: ENOXAPARIN INJ 40 MG/0.4 ML SYR SQ SCH (09:24)
--- NOTE | 2022-05-21 12:50 | Discharge Summary ---
Date of Service May 21, 2022 Admission HPI Per Admitting Provider Murray Murcia is a 67 year old male who presents to the ER with vomiting, cough, nasal congestion, shortness of breath and wheezing. He reports being on day 4 of his illness. Initially started with nasal congestion and sinus pain. Last night he became much worse with shortness of breath, coughing up brown/yellow sputum and vomiting this morning. He has been taking his albuterol nebulizer and inhaler at home 4 times a day. He has not yet been on prednisone. He is taking his Advair as prescribed which she takes only around. He reports no asthma exacerbation for years requiring prednisone. He denies any chest pain, orthopnea, PND, palpitations, claudication. He denies any abdominal pain, diarrhea, constipation or urinary symptoms. Currently feeling febrile. In the ER he was given an hour-long DuoNeb, Solu-Medrol 125 mg IV and 1 L normal saline bolus. He feels significantly improved after these treatments however he is still requiring 6 L/min oxygen at rest. He is not on oxygen at baseline. He was referred to medicine for admission ongoing management of acute hypoxic respiratory failure. Principal Diagnosis Metapneumo virus infection, Asthma excaerbation Discharge Exam The patient is awake, alert and oriented 3, well developed and well nourished, normocephalic and atraumatic, lying in bed and in no acute distress. HEENT--PERRL, EOMI, mucous membranes and oropharynx mildly dry Neck--supple. No JVD. No bruits. Thyroid normal, trachea midline, no adenopathy. Heart--normal S1 and S2. No murmurs, rubs or gallops. Lungs--clear bilaterally, no respiratory distress, no accessory muscle use. Abdomen--normal bowel sounds and soft. Mild epigastric and left sided abdominal pain Extremities--no cyanosis or clubbing. No edema. Dermatologic--normal skin turgor, normal color, no abnormal lymph nodes, no rash. Neurologic--cranial nerves II through XII grossly intact. Rheumatologic--normal range of motion. Psychiatric--normal affect. Discharge Data Allergies Allergy/AdvReac Type Severity Reaction Status Date / Time No Known Allergies Allergy Verified 05/19/22 17:34 Consultations 05/19/22 17:03 ED Decision to Admit Stat Hospital Course (1) Infection due to human metapneumovirus (hMPV): Likely the cause of his SOB and Asthma exacerbation Although patient also gave a history of recently raking up mouldy leaves from his yard Will also obtain sputum gram stain and culture continue symptomatic mgt (2) Acute respiratory failure with hypoxia: Secondary to asthma exacerbation and metapneumovirus. Aim O2 sats > 94%. Resolved, now on room air (3) Asthma exacerbation: Exacerbation, precipitated by metapneumovirus or possibly mould given a recent exposure Duonebs every 4 hourly Switch Advair to Perforomist and budesonide nebulizers twice daily Solu-medrol 125 mg IV given in the ER. Continue 40 mg IV twice daily Suspect most likely secondary to metapneumovirus however will also treat for bacterial pneumonia given chest x-ray changes and elevated white blood count Repeat magnesium level in a.m. after 2 g IV replacement given today. Sputum gram stain pending (4) Bacterial pneumonia: Blunting of left base costophrenic angle on chest x-ray may represent possible pneumonia. Given elevated white blood count will treat with Unasyn and azithromycin although most likely symptoms secondary to metapneumovirus. Discharge on Augmentin and Azithromycin for 5 more days (5) Hypertension: Continue metoprolol succinate 25 mg p.o. daily (6) Hyperlipidemia: Continue rosuvastatin 5 mg p.o. at bedtime (7) BPH (benign prostatic hyperplasia): Continue tamsulosin 0.4 mg p.o. daily (8) Leucocytosis: Most likely From steroids patient is afebrile Plan VTE prophylaxis - Lovenox 40 mg subcu twice daily Diet - regular Disposition - d/c Total Time Total Time Spent Total Time Spent (In Minutes): 35 Discharge Plan Discharge Items Patient Disposition: Home - Self-Care Reason For Visit: ACUTE ASTHMA EXACERBATION,PNEUMONIA Discharge Diagnosis: PNA, acute exacerbation Activity: Resume your previous activity Non-emergency contact: Primary Care Provider Call non-emergency contact if: you have any medication questions Follow-up/Referrals: Alex Trevino DO [Primary Care Provider] - 05/31/22 1:00 pm Diet: Regular Addtl Attending Provider Instructions: please make appointment to follow up with your regular PCP Pending Studies at Discharge: No Stand-Alone Forms: [employer], Smoking Cessation Medications and DC Order Prescriptions: New azithromycin 250 mg Tablet 500 mg PO QAM 5 Days Qty: 10 0RF amoxicillin-pot clavulanate [Augmentin] 500-125 mg tablet 1 tab PO BID 5 Days Qty: 10 0RF Continued metoprolol succinate 25 mg tablet extended release 24 hr 25 mg PO QAM Qty: 90 3RF fluticasone propion-salmeterol [Advair Diskus] 250-50 mcg/dose blister with device 1 inh INH BID Qty: 180 3RF rosuvastatin 5 mg tablet 5 mg PO HS Qty: 90 3RF Rx Instructions: take in evening. albuterol sulfate [Ventolin HFA] 90 mcg/actuation HFA aerosol inhaler 2 puff INH .COMPLEX PRN (Reason: asthmatic bronchitis) Qty: 54 3RF Rx Instructions: 2 puffs inhalation PRN; cholecalciferol (vitamin D3) [Vitamin D3] 25 mcg (1,000 unit) capsule 25 mcg PO DAILY fluocinonide-emollient [Fluocinonide-E] 0.05 % cream 1 applic TOP BID Qty: 30 5RF Rx Instructions: to affected areas tamsulosin 0.4 mg capsule 0.4 mg PO DAILY Qty: 90 3RF Discharge Orders: Discharge Order (Routine); Ordered 05/21/22 Ordered By: Sade Kaiser Admission Data Admit Date/Time: 05/19/22 18:05 Attending Provider: Sade Kaiser Admit Provider: Mannie Vo Primary Care Provider: Alex Trevino Other Providers: Mannie Vo Other Interventions: Discharge Summary Assessment (RN) Last Done: 05/21/22 11:34 Coding Level of Care Code 26304 INP/OBS DISCH >30 MIN Diagnoses Infection due to human metapneumovirus (hMPV) B34.8 Acute respiratory failure with hypoxia J96.01 Asthma exacerbation J45.41 Asthma persistence: persistent Asthma severity: moderate Bacterial pneumonia J15.9 Hypertension I10 Hyperlipidemia E78.5 BPH (benign prostatic hyperplasia) N40.0 Leucocytosis D72.829 Time Spent (min) 35
== END 2022-05-21 12:28 | disposition home or self-care (01) | DRG 193 ==
LOC: ED 14:29 → EDINP 18:05 → SUATTDRO 18:05 → 2N 20:23